=== PATIENT | female | born 1940 | race Caucasian/White ===

== ENCOUNTER → 2017-08-14 | Outpatient (CLI) | payer MEDICARE, OTHER ==
--- NOTE | 2017-08-14 11:07 | BD ---
EXAMINATION TYPE: MG DEXA axial skeleton. 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 History of Fracture in Adulthood: no Secondary Osteoporosis: 1. Type 1 Diabetes: no 2. Hyperthyroidism: no 3. Menopause before 45: no 4. Malnutrition: no 5. Chronic liver disease: no Rheumatoid Arthritis: no Current Tobacco Use: no RISK FACTORS HISTORY OF: Hip Fracture (Right/Left): no Spine Fracture: no History of Wrist Fracture: no Surgery to Spine/Hip(right/left)/Wrist (right/left): no Family History of Osteoporosis: yes Active: yes Diet low in dairy products/other sources of calcium: yes Postmenopausal woman: around age 62 Lost more than 2 inches in height since high school: no Frequent falls: no Poor Health: no Hyperparathyroidism: no Adrenal Insufficiency: no MEDICATIONS: high bp med, cholesterol med, calcium, baby aspirin Additional History: EXAM MEASUREMENTS: Bone mineral densitometry was performed using the [employer]. Bone mineral density as measured about the Lumbar spine is: ----- L1-L4(G/cm2): 1.001 T Score Values are as follows: ----- L2: -2.0 ----- L3: -0.8 ----- L4: -1.8 ----- L1-L4: -1.5 Bone mineral density has: increased 2.1 % since study of: 07.30.2015 Bone mineral density about the R hip (g/cm2): 0.781 Bone mineral density about the L hip (g/cm2): 0.763 T Score values are as follows: -----R Neck: -1.9 -----L Neck: -2.0 -----R Total: -1.2 -----L Total: -2.1 Bone mineral density has: increased 2.0 % since study of: 07.30.2015 IMPRESSION: Osteopenia NOTE: T-SCORE=SD OF THE YOUNG ADULT MEAN.
--- NOTE | 2017-08-17 12:33 | MM ---
Reason for exam: screening (asymptomatic). Last mammogram was performed 1 year ago. History: Patient is postmenopausal. Family history of breast cancer in sister at age 65. Physical Findings: A clinical breast exam by your physician is recommended on an annual basis and results should be correlated with mammographic findings. MG Screening Mammo w CAD Bilateral CC and MLO view(s) were taken. Prior study comparison: August 07, 2016, bilateral MG screening mammo w CAD. July 30, 2015, bilateral MG screening mammo w CAD. The breast tissue is heterogeneously dense. This may lower the sensitivity of mammography. Finding: There are typically benign calcifications in both breasts. No significant changes in finding since August 07, 2016 and July 30, 2015. ASSESSMENT: Benign, BI-RAD 2 RECOMMENDATION: Routine screening mammogram of both breasts in 1 year.
== END | disposition home or self-care (01) ==
LOC: RADMAMWWP 09:29
PROVIDERS: ATTEND Internal Medicine
DX: Z12.31 Encounter for screening mammogram for malignant neoplasm of breast (principal); M85.88 Other specified disorders of bone density and structure, other site
CPT/HCPCS: 77067; 77080

== ENCOUNTER → 2018-01-08 | Outpatient (CLI) | payer MEDICARE, OTHER ==
--- NOTE | 2018-01-08 13:58 | US ---
EXAMINATION TYPE: US kidneys/renal and bladder DATE OF EXAM: 01/08/2018 COMPARISON: NONE CLINICAL HISTORY: R79.9 ABN FINDING OF BLOOD CHEMISTRY. Abnormal blood work per patient EXAM MEASUREMENTS: Right Kidney: 8.3 x 3.5 x 4.2 cm Left Kidney: 8.7 x 4.4 x 4.3 cm Right Kidney: appears somewhat small in size, no hydronephrosis or renal masses seen Left Kidney: appears somewhat small in size, fullness of renal pelvis, no masses seen Bladder: wnl Bilateral Jets seen: right jet seen, left jet not seen There is no evidence for hydronephrosis at this point in time. No nephrolithiasis is seen. No es s are identified. The urinary bladder is anechoic. Bilateral ureteral jets are not seen. IMPRESSION: Kidneys are symmetric and somewhat small in size. No hydronephrosis however is identified bilaterally .
== END | disposition home or self-care (01) ==
LOC: RADUSWWP 13:18
PROVIDERS: ATTEND Internal Medicine
DX: N27.1 Small kidney, bilateral (principal); R79.9 Abnormal finding of blood chemistry, unspecified
CPT/HCPCS: 76770

== ENCOUNTER 2018-05-13 23:22 | Emergency (ER) | payer MEDICARE, OTHER ==
--- NOTE | 2018-05-14 00:12 | ED ---
General Adult HPI - General Chief complaint: Recheck/Abnormal Lab/Rx Stated complaint: surgical site redness Time Seen by Provider: 05/13/18 23:37 Source: patient Mode of arrival: wheelchair Limitations: no limitations - History of Present Illness Initial comments: 78-year-old female patient presents to the emergency department today for evaluation of excoriation and erythema surrounding her left lower quadrant stoma site. Patient states that she had surgery one month ago with Dr. Baptiste. Patient states that over the last day or so the area around her stoma has become more reddened and sore. Patient states that the stoma seems to have sunken in farther as well. States that she did have some mild abdominal discomfort around the stoma site earlier in the day but that did resolve. Patient denies any change in stool consistency. She denies any nausea, vomiting , fever, or chills. Patient states that she does have some residual issues with wound closure to her midline abdominal incision but they have contacted and is being monitored by the wound care nurse. Patient denies any hematochezia or melena. Denies any current pain or discomfort. Patient denies any recent rash, shortness breath, chest pain, back pain, numbness, tingling, dizziness, weakness, hematuria, dysuria, urinary urgency, urinary frequency, headache, visual changes, or any other complaints. - Related Data Home Medications Medication Instructions Recorded Confirmed Aspirin 162 mg PO DAILY 04/09/18 05/13/18 Calcium Carbonate/Vitamin D3 1 tab PO BID 04/09/18 05/13/18 [Calcium 600-Vit D3 200 Tablet] Cholecalciferol [Vitamin D3] 1,000 unit PO BID 04/09/18 05/13/18 Lisinopril 40 mg PO DAILY 04/09/18 05/13/18 Metoprolol Succinate (ER) [Toprol 100 mg PO DAILY 04/09/18 05/13/18 Xl] Simvastatin [Zocor] 20 mg PO HS 04/09/18 05/13/18 Allergies Allergy/AdvReac Type Severity Reaction Status Date / Time No Known Allergies Allergy Verified 05/13/18 23:44 Review of Systems ROS Statement: Those systems with pertinent positive or pertinent negative responses have been documented in the HPI. ROS Other: All systems not noted in ROS Statement are negative. Past Medical History Past Medical History: Hyperlipidemia, Hypertension Additional Past Medical History / Comment(s): Osteopenia History of Any Multi-Drug Resistant Organisms: None Reported Additional Past Surgical History / Comment(s): L eye corneal transplant, bilateral cataracts removed with lens implants. stoma Past Anesthesia/Blood Transfusion Reactions: No Reported Reaction Past Psychological History: No Psychological Hx Reported Smoking Status: Never smoker Past Alcohol Use History: Rare Past Drug Use History: None Reported - Past Family History Father Family Medical History: Dementia Additional Family Medical History / Comment(s): Father lived to be 85yrs old. Mother Family Medical History: Myocardial Infarction (NC) Additional Family Medical History / Comment(s): Mother of a NC at the age of 64yrs. General Exam Limitations: no limitations General appearance: alert, in no apparent distress, other (This is a well- developed, well-nourished elderly female patient in no acute distress. Vital signs upon presentation are temperature 98.0F, pulse 72, respirations 16, blood pressure 160/70, pulse ox 98% on room air.) Eye exam: Present: normal appearance, PERRL, EOMI. Absent: scleral icterus, conjunctival injection, periorbital swelling ENT exam: Present: normal exam, normal oropharynx, mucous membranes moist Respiratory exam: Present: normal lung sounds bilaterally. Absent: respiratory distress, wheezes, rales, rhonchi, stridor Cardiovascular Exam: Present: regular rate, normal rhythm, normal heart sounds. Absent: systolic murmur, diastolic murmur, rubs, gallop, clicks GI/Abdominal exam: Present: soft, normal bowel sounds, other (Midline abdominal incisions with two areas of incisional dehiscence which is packed and seems to be healing well. There is no drainage or surrounding erythema. No odor. Stoma site was evaluated, here he stoma area does exhibit some excoriation and redness , there is no drainage of pus or evidence of cellulitis or infection.). Absent : distended, tenderness, guarding, rebound, rigid Neurological exam: Present: alert, oriented X3, CN II-XII intact Psychiatric exam: Present: normal affect, normal mood Skin exam: Present: warm, dry, intact, normal color. Absent: rash Course Vital Signs 05/13/18 05/14/18 23:29 01:23 Temperature 98 F 98.6 F Pulse Rate 72 67 Respiratory 16 17 Rate Blood Pressure 160/70 152/98 O2 Sat by Pulse 98 97 Oximetry Medical Decision Making - Medical Decision Making 78-year-old female patient presented to the emergency department today for evaluation of redness surrounding her stoma site to the left lower quadrant. Colostomy bag was removed and area was evaluated, there was a small amount of excoriation to the inferior aspect of the stoma area. Patient had no bleeding or evidence of infection. No drainage of pus. Patient has not been using any barrier cream when applying her applying it was. We did obtain some barrier cream and use this after cleaning the area and applying skin barrier ointment and powder to the excoriated area. Patient tolerated the procedure well. Abdomen was soft and nontender. She is afebrile, vital signs stable. She is instructed to follow-up with her surgeon for recheck as soon as possible. She is instructed to keep the area clean and dry as possible. Return parameters were discussed in detail. She verbalizes understanding and agreed with this plan. Disposition Clinical Impression: Peristomal skin irritation and breakdown Disposition: HOME SELF-CARE Condition: Good Instructions: Colostomy Care (ED) Additional Instructions: Keep area around stoma clean and dry. Follow-up with Dr. Baptiste for further evaluation as soon as possible. Return here immediately for any new, worsening , or concerning symptoms. Is patient prescribed a controlled substance at d/c from ED?: No Referrals: Sis Miller MD [Primary Care Provider] - 1-2 days Time of Disposition: 01:15
[2018-05-14 01:33] VITALS: BP 152/98; PULSE 67; RESP 17; TEMP 98.6
== END 2018-05-14 01:24 | disposition home or self-care (01) ==
LOC: EC 23:22
DX: K94.09 Other complications of colostomy (principal); E78.5 Hyperlipidemia, unspecified; I10 Essential (primary) hypertension; M85.80 Other specified disorders of bone density and structure, unspecified site; Z79.82 Long term (current) use of aspirin; Z79.899 Other long term (current) drug therapy; Z98.890 Other specified postprocedural states
CPT/HCPCS: 99283

== ENCOUNTER → 2018-08-25 | Outpatient (CLI) | payer MEDICARE, OTHER | END | disposition home or self-care (01) | LOC: RADMAMWWP 16:03 | PROVIDERS: ATTEND Internal Medicine | DX: Z53.9 Procedure and treatment not carried out, unspecified reason (principal) ==

== ENCOUNTER → 2020-09-14 | Outpatient (CLI) | payer MEDICARE, OTHER ==
--- NOTE | 2020-09-14 08:07 | US ---
EXAMINATION TYPE: US carotid duplex BILAT DATE OF EXAM: 09/14/2020 COMPARISON: NONE CLINICAL HISTORY: I65.23 AGUS ARTERY CAROTID STENOSIS. EXAM MEASUREMENTS: RIGHT: Peak Systolic Velocity (PSV) cm/sec ----- Right CCA: 99.1 ----- Right ICA: 101.8 ----- Right ECA: 87.5 ICA/CCA ratio: 1.0 RIGHT: End Diastole cm/sec ----- Right CCA: 22.8 ----- Right ICA: 29.2 ----- Right ECA: 11.7 LEFT: Peak Systolic Velocity (PSV) cm/sec ----- Left CCA: 94.7 ----- Left ICA: 115.8 ----- Left ECA: 152.8 ICA/CCA ratio: 1.2 LEFT: End Diastole cm/sec ----- Left CCA: 24.6 ----- Left ICA: 32.5 ----- Left ECA: 15.5 VERTEBRALS (direction of flow): Right Vertebral: Antegrade Left Vertebral: Antegrade Rhythm: Normal No significant stenosis seen. Mildly elevated left ECA. Bilateral plaque noted. IMPRESSION: No evidence for hemodynamically significant stenosis. Criteria for Assigning % of Stenosis / Diameter reduction (Estimation based on the indirect measurements of the internal carotid artery velocities (ICA PSV). 1. Normal (no stenosis)=ICA PSV < 125 cm/s: ratio < 2.0: ICA EDV<40 cm/s. 2. Less than 50% stenosis=ICA PSV < 125 cm/s: ratio < 2.0: ICA EDV<40 cm/s. 3. 50 to 69% stenosis=ICA PSV of 125 to 230 cm/s: ration 2.0 ? 4.0: ICA EDV 40-100 cm/s. 4. Greater than 70% stenosis to near occlusion= ICA PSV > 230 cm/s: ratio > 4.0: ICA EDV > 100 cm/s. 5. Near occlusion= ICA PSV velocities may be low or undetectable: variable ratio and ICA EDV. 6. Total occlusion=unable to detect flow.
== END | disposition home or self-care (01) ==
LOC: RADUSWWP 07:29
PROVIDERS: ATTEND Internal Medicine
DX: I65.23 Occlusion and stenosis of bilateral carotid arteries (principal); I25.119 Atherosclerotic heart disease of native coronary artery with unspecified angina pectoris
CPT/HCPCS: 93880

== ENCOUNTER → 2020-09-18 | Outpatient (CLI) | payer MEDICARE, OTHER ==
--- NOTE | 2020-09-18 14:51 | EST ---
EXERCISE STRESS AGE: 80 SEX: Female HT: 5 ft. WT: 115 lbs. PROTOCOL: Cy STAGE: 3 DURATION OF EXERCISE: 6 minutes 4 seconds HEART RATE REST: 67 BLOOD PRESSURE REST: 159/79 MAXIMUM HEART RATE ACHIEVED: 122 MAXIMUM BLOOD PRESSURE: 246/75 85% MPHR: 117 100% MPHR: 138 METS: 7.3 INDICATIONS: Hypertension CLINICAL INFORMATION: Baseline rhythm is a sinus mechanism, rate of 67, normal axis and intervals, normal electrocardiogram. Baseline blood pressure 159/79 mmHg. Patient exercised on Yc protocol for 6 minutes 4 seconds reaching peak rate of 122 beats per minute which is equal to 88% maximum predicted heart rate. Peak blood pressure 246/75 mmHg. Test was terminated secondary to fatigue. There was no chest pain. Electrocardiograph monitoring revealed no evidence of diagnostic ischemic ST deviation. CONCLUSION: 1. Good exercise tolerance with normal electrocardiograph response to exercise. 2. Hypertensive response to exercise. MMODL / IJN: [id number] /
== END | disposition home or self-care (01) ==
LOC: RADNMMAIN 08:29
PROVIDERS: ATTEND Internal Medicine
DX: I10 Essential (primary) hypertension (principal)
CPT/HCPCS: 93017

== ENCOUNTER 2025-02-21 07:10 | Day surgery (SDC) | payer MEDICARE, OTHER ==
[2025-02-20 10:53] VITALS: BMI 24.0
[2025-02-21] MEDS: IV FLUID CONTINUATION 1,000 ML IV ONE (08:01)
[2025-02-21] MEDS: LACTATED RINGERS 1,000 ML IV SCH (08:10)
[2025-02-21 08:17] VITALS: TEMP 98
[2025-02-21 08:19] LABS: Glucose,Whole Blood 90 mg/dL (70-110)
[2025-02-21] MEDS ORDERED: PROPOFOL 10 MG/ML 20 ML VIAL IV ONE (09:40)
[2025-02-21] MEDS ORDERED: LIDOCAINE 2% (PF) 20 MG/ML 5 ML VIAL ONE (09:40)
--- NOTE | 2025-02-21 09:45 | P.PCN ---
Date of Procedure: 02/21/25 Procedure(s) Performed: BRIEF HISTORY: Patient is a 85-year-old, pleasant, white female scheduled for an upper endoscopy as a part evaluation of lungs and history of GERD for the last 8 years duration. Currently on Nexium 20 mg daily and symptoms have been under control.. PROCEDURE PERFORMED: Esophagogastroduodenoscopy with biopsy. PREOPERATIVE DIAGNOSIS: Longstanding history of GERD. IV sedation per anesthesia. PROCEDURE: After informed consent was obtained, the patient was brought into the endoscopy unit. IV sedation was administered by Anesthesia under continuous monitoring. Initially the Olympus GIF-140 video endoscope was inserted into the mouth. Esophagus intubated without any difficulty. It was gradually advanced into the stomach and duodenum and carefully examined. The bulb and the second part of the duodenum appeared normal. The scope at this time was withdrawn to the stomach, adequately insufflated with air, and upon careful examination, mucosa of the antrum, patchy areas of erythema consistent with gastritis and biopsies were done from this area. Body, cardia and the fundus appeared normal. Multiple small gastric polyps noted in the gastric body which were biopsied. The scope was then withdrawn into the esophagus. The GE junction was located at 39 cm from the incisors. Small sliding-type hiatal hernia noted. The esophagus appeared normal. There were no erosions or ulcerations seen and the patient tolerated the procedure well. IMPRESSION: 1. Mild antral gastritis. 2. Small gastric polyps Sliding-type hiatal hernia. RECOMMENDATIONS: The findings of this examination were discussed with the patient as well as her family. She was advised to continue with Nexium 20 mg daily and follow antireflux measures. Follow-up with the biopsy results..
[2025-02-21 09:52] VITALS: RESP 14
[2025-02-21 10:04] VITALS: BP 117/73; PULSE 60
== END 2025-02-21 10:37 | disposition home or self-care (01) ==
LOC: ORWHC2ENDO 07:10
PROVIDERS: ATTEND Internal Medicine Gastroenterology
DX: K21.9 Gastro-esophageal reflux disease without esophagitis (principal); K29.50 Unspecified chronic gastritis without bleeding; K44.9 Diaphragmatic hernia without obstruction or gangrene; K31.7 Polyp of stomach and duodenum; K31.89 Other diseases of stomach and duodenum; I10 Essential (primary) hypertension; E78.5 Hyperlipidemia, unspecified; M19.90 Unspecified osteoarthritis, unspecified site; Z79.899 Other long term (current) drug therapy; Z90.49 Acquired absence of other specified parts of digestive tract
CPT/HCPCS: 88305; 43239; J2704; J2003